=== PATIENT | male | born 1980 | race Caucasian/White ===

== ENCOUNTER → 2019-08-31 | Outpatient (CLI) | payer OTHER ==
--- NOTE | 2019-08-31 16:48 | KCIC ---
HAMMAD ART STUDY LOWER EXTREM CHRISTY History: Ineffective tissue perfusion, cold feet, feet numbness, pain Comparison: None. Findings: Right HAMMAD was 1.1, left 1.1. There are normal waveforms of the visualized posterior tibial and dorsalis pedis arteries bilaterally. Impression: 1. Ankle brachial indices are considered within normal limits bilaterally. Electronically signed by: Jayesh Man MD (08/31/2019 4:45 PM) [id number]
== END ==
LOC: KCIC US 15:57
PROVIDERS: ATTEND Nurse Practitioner Family
DX: I99.8 Other disorder of circulatory system (principal)
CPT/HCPCS: 93922